=== PATIENT | male | born 1985 | race American Indian/Alaskan Native ===

== ENCOUNTER 2017-06-21 18:10 | Emergency (ER) | payer OTHER ==
[2017-06-21 19:24] LABS: BASO % 0.7 % (0.0-2.0); EOS # 0.1 K/uL (0.0-0.7); EOS % 2.2 % (0.0-4.0); HEMATOCRIT 39.1 % (35.0-51.0); LYMPH # 2.3 K/uL (1.0-4.3); LYMPH % 35.3 % (20.0-40.0); MEAN CELL VOLUME 83.9 fL (80.0-94.0); MEAN CORPUSCULAR HEMOGLOBIN 27.9 pg (27.0-31.0); MEAN CORPUSCULAR HGB CONC 33.3 g/dL (33.0-37.0); MEAN PLATELET VOLUME 8.9 fL (7.2-11.7); MONO # 0.4 K/uL (0.0-0.8); MONO % 6.8 % (0.0-10.0); RED CELL DISTRIBUTION WIDTH 13.2 % (11.5-14.5); WHITE BLOOD COUNT 6.6 K/uL (4.8-10.8)
[2017-06-21 19:32] LABS: CHLORIDE 102 mmol/L (98-107); POTASSIUM 3.8 mmol/L (3.6-5.2); SODIUM 141 mmol/L (132-148)
--- NOTE | 2017-06-21 19:32 | C.PDOC ---
History Of Present Illness 32 yo male c/o right sided back pain raditing to the right hip and down his leg for 3 weeks. Notes currently he has no pain. He only feels it when he is at work for [employer] lifting boxes or working out. No urinary /bowel incontinence, change of sensation, abdominal pain, fever, n/v, trauma. PT notes that he has been evaluated for this pain in the past, was told to "take it easy" but pain returned. Time Seen by Provider: 06/21/17 18:35 Chief Complaint (Nursing): Abdominal Pain History Per: Patient History/Exam Limitations: no limitations Onset/Duration Of Symptoms: Days Current Symptoms Are (Timing): Still Present Past Medical History Reviewed: Historical Data, Nursing Documentation, Vital Signs Vital Signs: Last Vital Signs Temp 98 F 06/21/17 20:32 Pulse 77 06/21/17 20:32 Resp 20 06/21/17 20:32 BP 137/74 06/21/17 20:32 Pulse Ox 100 06/21/17 20:32 Family History: States: No Known Family Hx - Social History Hx Alcohol Use: Yes Hx Substance Use: No - Immunization History Hx Tetanus Toxoid Vaccination: No Hx Influenza Vaccination: No Hx Pneumococcal Vaccination: No Review Of Systems Except As Marked, All Systems Reviewed And Found Negative. Constitutional: Negative for: Fever, Chills Gastrointestinal: Negative for: Nausea, Vomiting Genitourinary: Negative for: Dysuria, Frequency Musculoskeletal: Positive for: Back Pain Skin: Negative for: Rash Physical Exam - Physical Exam Appears: Non-toxic, No Acute Distress Skin: Normal Color, Warm, Dry, No Rash Head: Atraumatic, Normacephalic Eye(s): bilateral: Normal Inspection, EOMI Oral Mucosa: Moist Neck: Normal ROM, Supple Chest: Symmetrical Cardiovascular: Rhythm Regular, No Murmur Respiratory: Normal Breath Sounds, No Rales, No Rhonchi, No Wheezing Gastrointestinal/Abdominal: Soft, No Tenderness, No Guarding, No Rebound Extremity: Normal ROM, Capillary Refill (<2 seconds) Neurological/Psych: Oriented x3, Normal Speech, Normal Cognition ED Course And Treatment - Laboratory Results Result Diagrams: 06/21/17 19:21 06/21/17 19:21 O2 Sat by Pulse Oximetry: 99 (RA) Pulse Ox Interpretation: Normal Progress Note: Pt continues to have no pain. Does not want any pain medication. Pt remains asymptomatic. Instructed to follow up with PM Din 1-2 days. Return to ER if symptoms persist or worsen. Disposition - Disposition Disposition: HOME/ ROUTINE Disposition Time: 20:04 Condition: STABLE Additional Instructions: Follow up with primary medical doctor in 1-3 days without fail for further evaluation. Return to the emergency department at any time if symptoms persist or worsen. 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 - Scribe Statement The provider has reviewed the documentation as recorded by the Claudyibe Fiona Gruber All medical record entries made by the David were at my direction and personally dictated by me. I have reviewed the chart and agree that the record accurately reflects my personal performance of the history, physical exam, medical decision making, and the department course for this patient. I have also personally directed, reviewed, and agree with the discharge instructions and disposition.
[2017-06-21 19:34] LABS: BILIRUBIN,TOTAL 0.6 mg/dL (0.2-1.3); CARBON DIOXIDE 27 mmol/L (22-30); GFR AFRICAN-AMERICAN > 60
[2017-06-21 19:35] LABS: ALB/GLOB RATIO 1.3 (1.0-2.1); ALKALINE PHOSPHATASE 42 U/L (38-126); ALT/SGPT 36 U/L (21-72); AST/SGOT 25 U/L (17-59); BLOOD UREA NITROGEN 13 mg/dL (9-20); CALCIUM 8.7 mg/dl (8.6-10.4); GLUCOSE,RANDOM 100 mg/dL (75-110); TOTAL PROTEIN 7.3 g/dL (6.3-8.3)
[2017-06-21 20:33] VITALS: BP 137/74; PULSE 77; RESP 20; TEMP 98
[2017-06-21 21:26] VITALS: O2SAT 99
--- NOTE | 2017-06-22 08:53 | RAD ---
PROCEDURE: Right Hip Radiographs. HISTORY: pain COMPARISON: None. FINDINGS: BONES: No fracture. JOINTS: Minimal left and mild right sclerotic arthrosis . Bilateral superolateral minimal hip joint space narrowing with minimal acetabular hypertrophy right greater than left. Possible right os acetabulum. SOFT TISSUES: Normal. OTHER FINDINGS: Trace blunting of the right femoral head neck superior concavity- can be seen in a clinical femoral acetabular impingement syndrome. IMPRESSION: No fracture. Multiple findings as above
--- NOTE | 2017-06-22 08:55 | RAD ---
PROCEDURE: Radiographs of the Lumbar Spine. HISTORY: pain COMPARISON: No prior. FINDINGS: BONES: Lumbar lordotic straightening. . No listhesis. No fracture. DISC SPACES: Unremarkable. OTHER FINDINGS: Additional findings per concurrent hip x-ray report -please note IMPRESSION: Lumbar lordotic straightening -positioning and/or spasm. No fracture or subluxation. The findings seen in the pelvis and hips- please note concurrent hip x-ray report
== END 2017-06-21 20:42 | disposition home or self-care (01) ==
LOC: C.ER 18:10
DX: S39.012A Strain of muscle, fascia and tendon of lower back, initial encounter (principal); X50.9XXA Other and unspecified overexertion or strenuous movements or postures, initial encounter; Y92.89 Other specified places as the place of occurrence of the external cause; Y99.0 Civilian activity done for income or pay

== ENCOUNTER 2019-03-16 11:47 | Observation (INO) | payer OTHER ==
[2019-03-16] MEDS ORDERED: Sodium Chloride 0.9% 1,000 ML IV STA (12:18)
--- NOTE | 2019-03-16 13:02 | CT ---
Date of service: 03/16/2019 PROCEDURE: CT HEAD WITHOUT CONTRAST. HISTORY: weakness, near syncope COMPARISON: Noncontrast head CT performed 08/13/15 TECHNIQUE: Axial computed tomography images were obtained through the head/brain without intravenous contrast. Radiation dose: Total exam DLP = 1094.3 mGy-cm. This CT exam was performed using one or more of the following dose reduction techniques: Automated exposure control, adjustment of the mA and/or kV according to patient size, and/or use of iterative reconstruction technique. FINDINGS: HEMORRHAGE: No intracranial hemorrhage. BRAIN: No mass effect or edema. No atrophy or chronic microvascular ischemic changes.Please note that MRI with diffusion imaging is more sensitive in the detection of acute ischemic event. VENTRICLES: No hydrocephalus. CALVARIUM: Unremarkable. PARANASAL SINUSES: Unremarkable as visualized. No significant inflammatory changes. MASTOID AIR CELLS: Unremarkable as visualized. No inflammatory changes. OTHER FINDINGS: Partial opacification of the external auditory canals, likely cerumen. IMPRESSION: No acute intracranial pathology identified.
[2019-03-16 13:46] LABS: BASO % 0.6 % (0.0-2.0); EOS # 0.1 K/uL (0.0-0.7); EOS % 1.5 % (0.0-4.0); HEMOGLOBIN 13.7 g/dL (12.0-18.0); LYMPH # 1.7 K/uL (1.0-4.3); LYMPH % 28.8 % (20.0-40.0); MEAN CELL VOLUME 85.4 fL (80.0-94.0); MEAN CORPUSCULAR HEMOGLOBIN 28.7 pg (27.0-31.0); MEAN CORPUSCULAR HGB CONC 33.6 g/dL (33.0-37.0); MEAN PLATELET VOLUME 9.2 fL (7.2-11.7); MONO # 0.4 K/uL (0.0-0.8); MONO % 6.7 % (0.0-10.0); NEUT # 3.6 K/uL (1.8-7.0); NEUT % 62.4 % (50.0-75.0); RBC 4.76 Mil/uL (4.40-5.90); RED CELL DISTRIBUTION WIDTH 13.4 % (11.5-14.5); WHITE BLOOD COUNT 5.8 K/uL (4.8-10.8)
--- NOTE | 2019-03-16 13:48 | RAD ---
Date of service: 03/16/2019 PROCEDURE: CHEST RADIOGRAPH, 1 VIEW HISTORY: weakness COMPARISON: 08/13/2015 FINDINGS: LUNGS: Clear. PLEURA: No pneumothorax or pleural fluid seen. CARDIOVASCULAR: No aortic atherosclerotic calcification present. Normal. OSSEOUS STRUCTURES: No significant abnormalities. VISUALIZED UPPER ABDOMEN: Normal. OTHER FINDINGS: None. IMPRESSION: No active disease. No interval pathology noted.
[2019-03-16 13:53] LABS: INR 1.2; PARTIAL THROMBOPLASTIN TIME 35.6 SECONDS (21-34); PROTHROMBIN TIME 12.8 SECONDS (9.7-12.2)
[2019-03-16 13:55] LABS: URINE BILIRUBIN NEGATIVE (NEGATIVE); URINE BLOOD NEGATIVE (NEGATIVE); URINE CLARITY Clear (Clear); URINE COLOR Yellow (YELLOW); URINE GLUCOSE (UA) NORMAL (Normal); URINE LEUKOCYTE ESTERASE NEG Leu/uL (Negative); URINE PROTEIN NEGATIVE (NEGATIVE)
[2019-03-16 14:10] LABS: ALB/GLOB RATIO 1.4 (1.0-2.1); ALBUMIN 4.5 g/dL (3.5-5.0); ALT/SGPT 48 U/L (21-72); AST/SGOT 54 U/L (17-59); BLOOD UREA NITROGEN 18 mg/dL (9-20); CALCIUM 9.5 mg/dl (8.6-10.4); GFR NON-AFRICAN AMERICAN > 60; LIPASE 32 U/L (23-300)
--- NOTE | 2019-03-16 14:14 | C.PDOC ---
History Of Present Illness 34 y/o male presents to ED stating he has not been feeling well for the past 2 weeks. States hes been feeling weak lately but denies any pain. Denies fever, chills, SOB, chest pain, abdominal pain, back pain, or other complaints. States he went to get a sandwich this morning at a deli store and started feeling weakness and feeling faint, so he went back home. Reports he ate a sandwich and called ambulance. Time Seen by Provider: 03/16/19 12:11 Chief Complaint (Nursing): Dizziness/Lightheaded History Per: Patient, EMS History/Exam Limitations: no limitations Onset/Duration Of Symptoms: Hrs Current Symptoms Are (Timing): Still Present Past Medical History Reviewed: Historical Data, Nursing Documentation, Vital Signs Vital Signs: Last Vital Signs Temp 97.6 F 03/16/19 12:01 Pulse 92 H 03/16/19 12:01 Resp 18 03/16/19 12:01 BP 149/73 03/16/19 12:01 Pulse Ox 97 03/16/19 12:01 Primary Care Provider: FAMILY PROVIDER,NO Family History: States: No Known Family Hx - Social History Hx Alcohol Use: No Hx Substance Use: No - Immunization History Hx Tetanus Toxoid Vaccination: No Hx Influenza Vaccination: No Hx Pneumococcal Vaccination: No Review Of Systems Except As Marked, All Systems Reviewed And Found Negative. Constitutional: Positive for: Weakness. Negative for: Fever, Chills Cardiovascular: Negative for: Chest Pain Respiratory: Negative for: Shortness of Breath Gastrointestinal: Negative for: Nausea, Vomiting, Abdominal Pain, Diarrhea Musculoskeletal: Negative for: Back Pain Physical Exam - Physical Exam Appears: Non-toxic, No Acute Distress Skin: Warm, Dry Head: Normacephalic Eye(s): bilateral: PERRL, EOMI Oral Mucosa: Moist Neck: Normal, Supple Cardiovascular: Rhythm Regular, No Murmur Respiratory: Normal Breath Sounds, No Rales, No Rhonchi, No Wheezing Gastrointestinal/Abdominal: Soft, No Tenderness Extremity: Bilateral: Atraumatic, Normal Color And Temperature, Normal ROM Neurological/Psych: Oriented x3, Normal Speech ED Course And Treatment - Laboratory Results Result Diagrams: 03/16/19 13:39 03/16/19 13:39 Lab Results: PT 12.8 SECONDS (9.7-12.2) H 03/16/19 13:39 INR 1.2 03/16/19 13:39 APTT 35.6 SECONDS (21-34) H 03/16/19 13:39 Total Bilirubin 0.6 mg/dL (0.2-1.3) 03/16/19 13:39 AST 54 U/L (17-59) 03/16/19 13:39 ALT 48 U/L (21-72) 03/16/19 13:39 Alkaline Phosphatase 43 U/L (38-126) 03/16/19 13:39 Total Protein 7.7 g/dL (6.3-8.3) 03/16/19 13:39 Albumin 4.5 g/dL (3.5-5.0) 03/16/19 13:39 Globulin 3.2 gm/dL (2.2-3.9) 03/16/19 13:39 Albumin/Globulin Ratio 1.4 (1.0-2.1) 03/16/19 13:39 Lipase 32 U/L (23-300) 03/16/19 13:39 Urine Color Yellow (YELLOW) 03/16/19 13:39 Urine Clarity Clear (Clear) 03/16/19 13:39 Urine pH 5.0 (5.0-8.0) 03/16/19 13:39 Ur Specific [place] 1.027 (1.003-1.030) 03/16/19 13:39 Urine Protein Negative mg/dL (NEGATIVE) 03/16/19 13:39 Urine Glucose (UA) Normal mg/dL (Normal) 03/16/19 13:39 Urine Ketones Negative mg/dL (NEGATIVE) 03/16/19 13:39 Urine Blood Negative (NEGATIVE) 03/16/19 13:39 Urine Nitrate Negative (NEGATIVE) 03/16/19 13:39 Urine Bilirubin Negative (NEGATIVE) 03/16/19 13:39 Urine Urobilinogen 4.0 mg/dL (0.2-1.0) 03/16/19 13:39 Ur Leukocyte Esterase Neg Jacque/uL (Negative) 03/16/19 13:39 Urine WBC (Auto) 1 /hpf (0-5) 03/16/19 13:39 Urine RBC (Auto) < 1 /hpf (0-3) 03/16/19 13:39 ECG: Interpreted By Me, Viewed By Me ECG Rhythm: Sinus Rhythm ECG Interpretation: No Acute Changes Rate From EC O2 Sat by Pulse Oximetry: 97 (RA) Pulse Ox Interpretation: Normal - Other Rad Chest XR X-Ray: Read By Radiologist Interpretation: FINDINGS: LUNGS: Clear. PLEURA: No pneumothorax or pleural fluid seen. CARDIOVASCULAR: No aortic atherosclerotic calcification present. Normal. OSSEOUS STRUCTURES: No significant abnormalities. VISUALIZED UPPER ABDOMEN: Normal. OTHER FINDINGS: None. IMPRESSION: No active disease. No interval pathology noted. - CT Scan/US Head CT Other Rad Studies (CT/US): Read By Radiologist, Radiology Report Reviewed CT/US Interpretation: FINDINGS: HEMORRHAGE: No intracranial hemorrhage. BRAIN: No mass effect or edema. No atrophy or chronic microvascular ischemic changes.Please note that MRI with diffusion imaging is more sensitive in the detection of acute ischemic event. VENTRICLES: No hydrocephalus. CALVARIUM: Unremarkable. PARANASAL SINUSES: Unremarkable as visualized. No significant inflammatory changes. MASTOID AIR CELLS: Unremarkable as visualized. No infl ammatory changes. OTHER FINDINGS: Partial opacification of the external auditory canals, likely cerumen. IMPRESSION: No acute intracranial pathology identified. Progress Note: Head CT, chest XR, and EKG ordered. Labs sent. IV fluids administered. On re-evaluation, patient still feels lightheaded. Spoke with Dr. Aj, who accepts patient to telemetry for observation. 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 - Scribe Statement The provider has reviewed the documentation as recorded by the Scribe Caitlyn Boss All medical record entries made by the Claudyibdeedee were at my direction and personally dictated by me. I have reviewed the chart and agree that the record accurately reflects my personal performance of the history, physical exam, medical decision making, and the department course for this patient. I have also personally directed, reviewed, and agree with the discharge instructions and disposition. Decision To Admit - Pt Status Changed To: Hospital Disposition Of: Observation - . Bed Request Type: Telemetry Admitting Physician: Jim Aj Patient Diagnosis: Near syncope
[2019-03-16 14:18] LABS: CK-MB 0.53 ng/mL (0.0-3.38)
[2019-03-16 14:23] LABS: BARBITURATES, UR NEGATIVE (NEGATIVE); BENZODIAZEPINES, UR NEGATIVE (NEGATIVE); OPIATES, UR NEGATIVE (NEGATIVE); PHENCYCLIDINE, UR NEGATIVE (NEGATIVE)
[2019-03-16 17:05] VITALS: RESP 20
[2019-03-16 17:35] VITALS: O2SAT 97
[2019-03-16 18:14] LABS: CK-MB 0.46 ng/mL (0.0-3.38)
--- NOTE | 2019-03-16 23:37 | CP.PCM.HP ---
Present on Admission - Present on Admission Any Indicators Present on Admission: No Past Patient History - Past Social History Smoking Status: Never Smoked - GENITOURINARY/GYNECOLOGICAL Hx Genitourinary Disorders: Yes Other/Comment: TESTICULAR CYST. - PSYCHIATRIC Hx Substance Use: No - SURGICAL HISTORY Hx Surgeries: No - ANESTHESIA Hx Anesthesia: No Meds Allergies/Adverse Reactions: Allergies Allergy/AdvReac Type Severity Reaction Status Date / Time No Known Allergies Allergy Verified 03/16/19 12:05 Results - Vital Signs Recent Vital Signs: Last Vital Signs Temp 98.4 F 03/16/19 16:40 Pulse 70 03/16/19 21:11 Resp 20 03/16/19 16:40 BP 145/77 03/16/19 16:40 Pulse Ox 97 03/16/19 20:41 - Labs Result Diagrams: 03/16/19 13:39 03/16/19 13:39 Labs: Laboratory Results - last 24 hr 03/16/19 03/16/19 03/16/19 12:00 13:39 13:39 WBC 5.8 RBC 4.76 Hgb 13.7 Hct 40.7 MCV 85.4 MCH 28.7 MCHC 33.6 RDW 13.4 Plt Count 165 MPV 9.2 Neut % (Auto) 62.4 Lymph % (Auto) 28.8 [place] % (Auto) 6.7 Eos % (Auto) 1.5 Baso % (Auto) 0.6 Neut # (Auto) 3.6 Lymph # (Auto) 1.7 [place] # (Auto) 0.4 Eos # (Auto) 0.1 Baso # (Auto) 0.0 PT 12.8 H INR 1.2 APTT 35.6 H Sodium Potassium Chloride Carbon Dioxide Anion Gap BUN Creatinine Est GFR ( Amer) Est GFR (Non-Af Amer) POC Glucose (mg/dL) 188 H Random Glucose Calcium Magnesium Total Bilirubin AST ALT Alkaline Phosphatase Total Creatine Kinase CK-MB (Mass) Troponin I Total Protein Albumin Globulin Albumin/Globulin Ratio Lipase Urine Color Urine Clarity Urine pH Ur Specific [place] Urine Protein Urine Glucose (UA) Urine Ketones Urine Blood Urine Nitrate Urine Bilirubin Urine Urobilinogen Ur Leukocyte Esterase Urine WBC (Auto) Urine RBC (Auto) Urine Opiates Screen Urine Methadone Screen Ur Barbiturates Screen Ur Phencyclidine Scrn Ur Amphetamines Screen U Benzodiazepines Scrn U Oth Cocaine Metabols U Cannabinoids Screen 03/16/19 03/16/19 03/16/19 13:39 13:39 13:39 WBC RBC Hgb Hct MCV MCH MCHC RDW Plt Count MPV Neut % (Auto) Lymph % (Auto) [place] % (Auto) Eos % (Auto) Baso % (Auto) Neut # (Auto) Lymph # (Auto) [place] # (Auto) Eos # (Auto) Baso # (Auto) PT INR APTT Sodium 141 Potassium 3.7 Chloride 101 Carbon Dioxide 27 Anion Gap 16 BUN 18 Creatinine 1.3 Est GFR ( Amer) > 60 Est GFR (Non-Af Amer) > 60 POC Glucose (mg/dL) Random Glucose 108 Calcium 9.5 Magnesium 2.0 Total Bilirubin 0.6 AST 54 ALT 48 Alkaline Phosphatase 43 Total Creatine Kinase 191 H CK-MB (Mass) 0.53 Troponin I < 0.0120 Total Protein 7.7 Albumin 4.5 Globulin 3.2 Albumin/Globulin Ratio 1.4 Lipase 32 Urine Color Yellow Urine Clarity Clear Urine pH 5.0 Ur Specific [place] 1.027 Urine Protein Negative Urine Glucose (UA) Normal Urine Ketones Negative Urine Blood Negative Urine Nitrate Negative Urine Bilirubin Negative Urine Urobilinogen 4.0 Ur Leukocyte Esterase Neg Urine WBC (Auto) 1 Urine RBC (Auto) < 1 Urine Opiates Screen Negative Urine Methadone Screen Negative Ur Barbiturates Screen Negative Ur Phencyclidine Scrn Negative Ur Amphetamines Screen Negative U Benzodiazepines Scrn Negative U Oth Cocaine Metabols Negative U Cannabinoids Screen Negative 03/16/19 17:46 WBC RBC Hgb Hct MCV MCH MCHC RDW Plt Count MPV Neut % (Auto) Lymph % (Auto) [place] % (Auto) Eos % (Auto) Baso % (Auto) Neut # (Auto) Lymph # (Auto) [place] # (Auto) Eos # (Auto) Baso # (Auto) PT INR APTT Sodium Potassium Chloride Carbon Dioxide Anion Gap BUN Creatinine Est GFR ( Amer) Est GFR (Non-Af Amer) POC Glucose (mg/dL) Random Glucose Calcium Magnesium Total Bilirubin AST ALT Alkaline Phosphatase Total Creatine Kinase 200 H CK-MB (Mass) 0.46 Troponin I < 0.0120 Total Protein Albumin Globulin Albumin/Globulin Ratio Lipase Urine Color Urine Clarity Urine pH Ur Specific [place] Urine Protein Urine Glucose (UA) Urine Ketones Urine Blood Urine Nitrate Urine Bilirubin Urine Urobilinogen Ur Leukocyte Esterase Urine WBC (Auto) Urine RBC (Auto) Urine Opiates Screen Urine Methadone Screen Ur Barbiturates Screen Ur Phencyclidine Scrn Ur Amphetamines Screen U Benzodiazepines Scrn U Oth Cocaine Metabols U Cannabinoids Screen
--- NOTE | 2019-03-17 06:08 | HP ---
CHIEF COMPLAINT: Feeling dizziness and not feeling well for two weeks. HISTORY OF PRESENT ILLNESS: This is a 34-year-old male who denies any history of smoking, alcohol, or any other substance abuse. He works for [employer] and his work schedule is changed and according to the patient since there are lot changes, eating habits change, and he has not been feeling well. He has been feeling weak, dizzy and fatigue at times. 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 His dizziness episode happened unexpectedly more or less once a day or sometimes more than once a day. The patient denies any history of blurring of vision. The patient has nausea. No vomiting. He has generalized weakness. He has neck pain. He denies any history of hip or joint pain. He denies any history of vertigo. According to him, the dizziness is mostly lightheadedness. He denies any history of chest pain or palpitation. He denies any history of polyuria, polydipsia, or polyphagia. He denies any history of hematuria or pyuria. He denies any history of sneezing, itchy eyes, or itchy nose. There is no history of trauma, fall, or loss of consciousness. No history of seizure-like activity. There is no history of tingling, numbness or paraesthesia. PAST MEDICAL HISTORY: Nothing significant. SOCIAL HISTORY: Nonsmoker, non-EtOH user. CURRENT MEDICATIONS: None. PHYSICAL EXAMINATION: GENERAL: A young male, in no distress. VITAL SIGNS: Blood pressure is 149/73, pulse 92, respiratory rate 18, temperature 97.6. SKIN: Warm. Good turgor. No bruises. No purpura. No petechia. No ecchymosis. HEENT: Atraumatic, normocephalic. Negative pallor. Negative jaundice. Extraocular movements are intact. NECK: Supple. No JVD. No lymph nodes. No thyromegaly. No carotid bruit. CHEST WALL: Bilateral symmetrical expansion. LUNGS: Clear. No rales. No rhonchi. CARDIOVASCULAR SYSTEM: S1 and S2, regular. No heave. No thrill. ABDOMEN: Soft, nontender. Bowel sounds are positive. RECTAL: No masses. No bleeding. EXTREMITIES: No clubbing, cyanosis, or edema. CENTRAL NERVOUS SYSTEM: Awake, alert, oriented x3. Cranial nerves II through XII are normal. Power 5/5 x4. Plantars are downgoing. ASSESSMENT: 1. Dizziness, near-syncope. It could be periods of hypoglycemia due to poorly eating habits versus dehydration. 2. Acute vertebrobasilar insufficiency which is unlikely because of lack of blood supply, it could be basilar migraine or it could be benign positional vertigo. PLAN: Admit. Detail orders are written. Seen and examined. Jim Aj MD
[2019-03-17 09:06] VITALS: BP 145/90; TEMP 98.3
--- NOTE | 2019-03-17 13:46 | CP.PCM.PN ---
Subjective - Date & Time of Evaluation Date of Evaluation: 03/17/19 Time of Evaluation: 13:46 - Subjective Subjective: alert and orientedx3, no sob or chest pains, no distress. Objective - Vital Signs/Intake and Output Vital Signs (last 24 hours): Temp Pulse Resp BP Pulse Ox 98.3 F 65 20 145/90 97 03/17/19 07:00 03/17/19 07:00 03/17/19 07:00 03/17/19 07:00 03/17/19 07:00 - Labs Labs: 03/16/19 13:39 03/16/19 13:39 PT 12.8 SECONDS (9.7-12.2) H 03/16/19 13:39 INR 1.2 03/16/19 13:39 APTT 35.6 SECONDS (21-34) H 03/16/19 13:39 Assessment and Plan - Assessment and Plan (Free Text) Assessment: Patient admitted with near syncope episode, seen and examined. Alert and orientedx3, denies any chest pains or dizziness, feeling ok. Discussed with DR Aj, plan to discharge home today. Advised to follow up with PMD in 1 week.
[2019-03-17 16:03] VITALS: PULSE 61
--- NOTE | 2019-03-17 22:39 | CP.PCM.DIS ---
Provider - Provider Date of Admission: 03/16/19 15:22 Attending physician: Jim Aj MD Time Spent in preparation of Discharge (in minutes): 45 Hospital Course - Lab Results Lab Results: Most Recent Lab Values WBC 5.8 K/uL (4.8-10.8) 03/16/19 13:39 RBC 4.76 Mil/uL (4.40-5.90) 03/16/19 13:39 Hgb 13.7 g/dL (12.0-18.0) 03/16/19 13:39 Hct 40.7 % (35.0-51.0) 03/16/19 13:39 MCV 85.4 fL (80.0-94.0) 03/16/19 13:39 MCH 28.7 pg (27.0-31.0) 03/16/19 13:39 MCHC 33.6 g/dL (33.0-37.0) 03/16/19 13:39 RDW 13.4 % (11.5-14.5) 03/16/19 13:39 Plt Count 165 K/uL (130-400) 03/16/19 13:39 MPV 9.2 fL (7.2-11.7) 03/16/19 13:39 Neut % (Auto) 62.4 % (50.0-75.0) 03/16/19 13:39 Lymph % (Auto) 28.8 % (20.0-40.0) 03/16/19 13:39 [place] % (Auto) 6.7 % (0.0-10.0) 03/16/19 13:39 Eos % (Auto) 1.5 % (0.0-4.0) 03/16/19 13:39 Baso % (Auto) 0.6 % (0.0-2.0) 03/16/19 13:39 Neut # (Auto) 3.6 K/uL (1.8-7.0) 03/16/19 13:39 Lymph # (Auto) 1.7 K/uL (1.0-4.3) 03/16/19 13:39 [place] # (Auto) 0.4 K/uL (0.0-0.8) 03/16/19 13:39 Eos # (Auto) 0.1 K/uL (0.0-0.7) 03/16/19 13:39 Baso # (Auto) 0.0 K/uL (0.0-0.2) 03/16/19 13:39 PT 12.8 SECONDS (9.7-12.2) H 03/16/19 13:39 INR 1.2 03/16/19 13:39 APTT 35.6 SECONDS (21-34) H 03/16/19 13:39 Sodium 141 mmol/L (132-148) 03/16/19 13:39 Potassium 3.7 mmol/L (3.6-5.2) 03/16/19 13:39 Chloride 101 mmol/L (98-107) 03/16/19 13:39 Carbon Dioxide 27 mmol/L (22-30) 03/16/19 13:39 Anion Gap 16 (10-20) 03/16/19 13:39 BUN 18 mg/dL (9-20) 03/16/19 13:39 Creatinine 1.3 mg/dL (0.8-1.5) 03/16/19 13:39 Est GFR ( Amer) > 60 03/16/19 13:39 Est GFR (Non-Af Amer) > 60 03/16/19 13:39 POC Glucose (mg/dL) 188 mg/dL (65-110) H 03/16/19 12:00 Random Glucose 108 mg/dL (75-110) 03/16/19 13:39 Calcium 9.5 mg/dl (8.6-10.4) 03/16/19 13:39 Magnesium 2.0 mg/dL (1.6-2.3) 03/16/19 13:39 Total Bilirubin 0.6 mg/dL (0.2-1.3) 03/16/19 13:39 AST 54 U/L (17-59) 03/16/19 13:39 ALT 48 U/L (21-72) 03/16/19 13:39 Alkaline Phosphatase 43 U/L (38-126) 03/16/19 13:39 Total Creatine Kinase 200 U/L (55-170) H 03/16/19 17:46 CK-MB (Mass) 0.46 ng/mL (0.0-3.38) 03/16/19 17:46 Troponin I < 0.0120 ng/mL (0.00-0.120) 03/16/19 17:46 Total Protein 7.7 g/dL (6.3-8.3) 03/16/19 13:39 Albumin 4.5 g/dL (3.5-5.0) 03/16/19 13:39 Globulin 3.2 gm/dL (2.2-3.9) 03/16/19 13:39 Albumin/Globulin Ratio 1.4 (1.0-2.1) 03/16/19 13:39 Lipase 32 U/L (23-300) 03/16/19 13:39 Urine Color Yellow (YELLOW) 03/16/19 13:39 Urine Clarity Clear (Clear) 03/16/19 13:39 Urine pH 5.0 (5.0-8.0) 03/16/19 13:39 Ur Specific [place] 1.027 (1.003-1.030) 03/16/19 13:39 Urine Protein Negative mg/dL (NEGATIVE) 03/16/19 13:39 Urine Glucose (UA) Normal mg/dL (Normal) 03/16/19 13:39 Urine Ketones Negative mg/dL (NEGATIVE) 03/16/19 13:39 Urine Blood Negative (NEGATIVE) 03/16/19 13:39 Urine Nitrate Negative (NEGATIVE) 03/16/19 13:39 Urine Bilirubin Negative (NEGATIVE) 03/16/19 13:39 Urine Urobilinogen 4.0 mg/dL (0.2-1.0) 03/16/19 13:39 Ur Leukocyte Esterase Neg [place]que/uL (Negative) 03/16/19 13:39 Urine WBC (Auto) 1 /hpf (0-5) 03/16/19 13:39 Urine RBC (Auto) < 1 /hpf (0-3) 03/16/19 13:39 Urine Opiates Screen Negative (NEGATIVE) 03/16/19 13:39 Urine Methadone Screen Negative (NEGATIVE) 03/16/19 13:39 Ur Barbiturates Screen Negative (NEGATIVE) 03/16/19 13:39 Ur Phencyclidine Scrn Negative (NEGATIVE) 03/16/19 13:39 Ur Amphetamines Screen Negative (NEGATIVE) 03/16/19 13:39 U Benzodiazepines Scrn Negative (NEGATIVE) 03/16/19 13:39 U Oth Cocaine Metabols Negative (NEGATIVE) 03/16/19 13:39 U Cannabinoids Screen Negative (NEGATIVE) 03/16/19 13:39 Discharge Plan - Follow Up Plan Condition: FAIR Disposition: HOME/ ROUTINE Instructions: Heart Healthy Diet, Near Fainting (DC) Additional Instructions: follow up with PMD in 1 week go to the ER if experience any symptoms / dizziness Referrals: Jim Aj MD [Staff Provider] -
--- NOTE | 2019-03-18 00:34 | CARD ---
APPROVED REPORT Date of service: 03/16/2019 EKG Measurement Heart [id number] <Conclusion> Normal sinus rhythm Minimal voltage criteria for LVH, may be normal variant Borderline ECG
--- NOTE | 2019-03-18 05:14 | DS ---
DISCHARGE DIAGNOSIS: Nonspecific dizziness due to poor eating habits with dehydration, most likely low sugars due to poor eating habits. HISTORY OF PRESENT ILLNESS AND HOSPITAL COURSE: This is a 34-year-old male with no significant past medical history. Since his shift change that is in his job, he was not able to eat on time. He had not been eating steadily and because of that, he has been getting dizzy. He came to emergency room. He was admitted. He was observed carefully. The patient does not have signs of any dizzy. He felt better and is for discharge. Condition upon discharge is stable. All the diagnostics and x-rays everything were negative. Jim Aj MD
--- NOTE | 2019-03-18 16:32 | CARD ---
APPROVED REPORT Date of service: 03/17/2019 EXAM: Two-dimensional and M-mode echocardiogram with Doppler and color Doppler. Other Information Quality : Good[employer] : INDICATION Dizziness and Vertigo Syncope 2D DIMENSIONS IVSd1.1 (0.7-1.1cm)LVDd4.9 (3.9-5.9cm) PWd1.0 (0.7-1.1cm)LA Vlwrvv91 (18-58mL) LVDs3.0 (2.5-4.0cm)FS (%) 38.7 % LVEF (%)68.9 (>50%)LVEF (Ramos's)65.50 % IVC0.00 cm M-Mode DIMENSIONS RVDd2.02 (2.1-3.2cm)Left Atrium (MM)3.74 (2.5-4.0cm) IVSd0.97 (0.7-1.1cm)Aortic Root2.58 (2.2-3.7cm) LVDd5.19 (4.0-5.6cm)Aortic Cusp Exc.2.05 (1.5-2.0cm) PWd0.97 (0.7-1.1cm)FS (%) 43 % LVDs2.97 (2.0-3.8cm)LVEF (%)74 (>50%) Mitral Valve MV E Lzmynsgs21.1cm/sMV A Cfqtnirl03.1cm/sE/A ratio1.3 TDI Lateral E' Peak V16.87cm/sMedial E' Peak V10.93cm/sE/Lateral E'5.6 E/Medial E'8.6 Tricuspid Valve TR Peak Urfcxxxh595al/sTR Peak Gr.[id number] LEFT VENTRICLE The left ventricle is normal size. There is normal left ventricular wall thickness. Left ventricle systolic function is normal. The Ejection Fraction is >70%. There is normal LV segmental wall motion. The left ventricular diastolic function is normal. No left ventricle thrombus noted on this study. RIGHT VENTRICLE The right ventricle is normal size. The right ventricular systolic function is normal. ATRIA The left atrium size is normal. The right atrium size is normal. AORTIC VALVE The aortic valve is mildly thickened. The aortic valve is trileaflet. No aortic regurgitation is present. There is no aortic valvular stenosis. There is no aortic valvular vegetation. MITRAL VALVE Mitral annular calcification is mild. There is no evidence of mitral valve prolapse. There is no mitral valve stenosis. Mitral regurgitation is trace to mild. TRICUSPID VALVE The tricuspid valve is normal in structure. There is mild tricuspid regurgitation. Right ventricular systolic pressure is estimated at 30-40 mmHg. There is no pulmonary hypertension. There is no tricuspid valve prolapse or vegetation. There is no tricuspid valve stenosis. PULMONIC VALVE The pulmonary valve is normal in structure. There is no pulmonic valvular regurgitation. There is no pulmonic valvular stenosis. GREAT VESSELS The aortic root is normal in size. The IVC is normal in size and collapses >50% with inspiration. PERICARDIAL EFFUSION There is no pericardial effusion. There is no pleural effusion. <Conclusion> The left ventricle is normal size. Left ventricle systolic function is normal. The Ejection Fraction is >70%. The left ventricular diastolic function is normal. The right ventricle is normal size. The right ventricular systolic function is normal. The left atrium size is normal. The right atrium size is normal. Mitral regurgitation is trace to mild. There is mild tricuspid regurgitation. Essentially normal M-mode, 2D and doppler echocardiogram.
== END 2019-03-17 14:44 | disposition home or self-care (01) ==
LOC: C.ER 11:47 → C.9E 15:22 → C.6T 16:08
PROVIDERS: ADMIT Internal Medicine; ATTEND Internal Medicine
DX: E86.0 Dehydration (principal); R42 Dizziness and giddiness; R55 Syncope and collapse; Z72.4 Inappropriate diet and eating habits
CPT/HCPCS: 36415; 70450; 71045; 80053; 80324; 80345; 80346; 80349; 80353; 80358; 80361; 81001; 82550; 82553; 82948; 83690; 83735; 83992; 84484; 85025; 85610; 85730; 93306; 95812; 96360; 99285; G0378; J7030